=== PATIENT | male | born 1965 | race Two or more races ===

== ENCOUNTER 2021-04-08 20:32 | Emergency (ER) | payer OTHER ==
[~2021-04-08] VITALS: Ht 190.5 cm; Wt 68.3 kg
[2021-04-08] MEDS ORDERED: IBUPROFEN 400MG TABLET PO ONE (21:15)
[2021-04-09] MEDS ORDERED: IBUP-2028 MT (00:20)
[2021-04-09 04:12] VITALS: BP 110/66
== END 2021-04-09 04:18 | disposition home or self-care (01) ==
LOC: ER 20:32
DX: S82.001A Unspecified fracture of right patella, initial encounter for closed fracture (principal); I10 Essential (primary) hypertension; J45.909 Unspecified asthma, uncomplicated; Z86.59 Personal history of other mental and behavioral disorders; W18.30XA Fall on same level, unspecified, initial encounter; Y93.89 Activity, other specified; Y92.89 Other specified places as the place of occurrence of the external cause; Y99.8 Other external cause status
CPT/HCPCS: 29505; 73110; 73130; 73521; 73562; 99284; Z7610

== ENCOUNTER 2021-06-16 20:02 | Emergency (ER) | payer MEDICAID, OTHER ==
[~2021-06-16] VITALS: Ht 185.4 cm; Wt 75.0 kg
[~2021-06-16 20:02] MED LIST: IBUP-2028 MT
[2021-06-16] MEDS ORDERED: LEVETIRACETAM 1000MG PREMIX 100 ML IV ONE (20:45)
[2021-06-16] MEDS ORDERED: HYDROCODONE/ACETAMINOPHEN 5/325MG TABLET PO ONE (21:45)
[2021-06-16 21:47] LABS: CLARITY URINE CLEAR (CLEAR); COLOR URINE YELLOW (YELLOW); KETONES URINE NEGATIVE (NEGATIVE); LEUKOCYTE ESTERASE URINE NEGATIVE (NEGATIVE); NITRITE URINE NEGATIVE (NEGATIVE); OCCULT BLOOD URINE NEGATIVE (NEGATIVE); PROTEIN URINE NEGATIVE (NEGATIVE); SPECIFIC GRAVITY URINE 1.026 (1.005-1.030); UROBILINOGEN URINE 0.2 E.U./dL (0.2-1.0)
[2021-06-16 22:13] LABS: *AMPHETAMINES SCREEN URINE NEGATIVE (NEGATIVE); *BARBITURATES SCREEN URINE NEGATIVE (NEGATIVE); *BENZODIAZEPINES SCREEN URINE NEGATIVE (NEGATIVE); *COCAINE SCREEN URINE NEGATIVE (NEGATIVE); METHADONE URINE SCREEN NEGATIVE (NEGATIVE); OPIATES URINE SCREEN NEGATIVE (NEGATIVE)
[2021-06-16 22:14] LABS: CANNABINOID URINE SCREEN NEGATIVE (NEGATIVE); PHENCYCLIDINE URINE SCREEN NEGATIVE (NEGATIVE)
[2021-06-16] MEDS ORDERED: INSULIN REGULAR (HUMULIN R) 300UNITS/3ML VIAL IV NR (22:15)
[2021-06-16] MEDS ORDERED: SODIUM CHLORIDE 0.9% 1,000 ML IV NR (22:15)
[2021-06-16 23:00] VITALS: BP 110/74
== END 2021-06-17 00:45 | disposition home or self-care (01) ==
LOC: ER 20:02
DX: G40.909 Epilepsy, unspecified, not intractable, without status epilepticus (principal); E11.65 Type 2 diabetes mellitus with hyperglycemia; R94.31 Abnormal electrocardiogram [ECG] [EKG]; I10 Essential (primary) hypertension; J45.909 Unspecified asthma, uncomplicated; Z79.4 Long term (current) use of insulin
CPT/HCPCS: 70450; 80305; 81003; 82962; 96361; 96365; 96375; 99284; J1815; J1953

== ENCOUNTER 2021-06-17 01:42 | Emergency (ER) | payer OTHER ==
[~2021-06-17] VITALS: Ht 190.5 cm; Wt 61.0 kg
[2021-06-17 03:10] VITALS: BP 124/75
[2021-06-17 04:26] LABS: BASOPHILS % 0.2 % (0.0-2.0); EOSINOPHILS % 0.2 % (0.0-5.0); HEMATOCRIT. 42.3 % (42.0-52.0); HEMOGLOBIN. 14.1 g/dL (14.0-18.0); LYMPHOCYTES % 7.9 % (20.0-50.0); MEAN CORPUSCULAR HEMOGLOBIN 34.3 pg (28.0-32.0); MEAN CORPUSCULAR VOLUME 102.8 fL (80.0-94.0); MEAN PLATELET VOLUME 8.4 fl (7.4-10.4); MONOCYTES % 6.9 % (2.0-8.0); NEUTROPHILS % 84.8 % (40.0-76.0); PLATELET 244 x1000/uL (130-400); RED BLOOD CELL COUNT 4.11 mill/uL (4.7-6.1); RED CELL DISTRIBUTION WIDTH 12.6 % (11.6-14.6)
[2021-06-17 04:32] LABS: CHLORIDE 107 mEq/L (98-107)
[2021-06-17 04:38] LABS: ETHANOL BLOOD < 10 mg/dL
== END 2021-06-17 06:00 | disposition home or self-care (01) ==
LOC: ER 01:42
DX: G40.909 Epilepsy, unspecified, not intractable, without status epilepticus (principal); E11.65 Type 2 diabetes mellitus with hyperglycemia; I10 Essential (primary) hypertension; J45.909 Unspecified asthma, uncomplicated; F17.210 Nicotine dependence, cigarettes, uncomplicated; F10.10 Alcohol abuse, uncomplicated; Y90.0 Blood alcohol level of less than 20 mg/100 ml; Z79.4 Long term (current) use of insulin; Z71.6 Tobacco abuse counseling
CPT/HCPCS: 36415; 80053; 80320; 82962; 85025; 99283; 99406; G0480